=== PATIENT | female | born 1995 | race Caucasian/White ===

== ENCOUNTER → 2022-02-19 15:40 | Outpatient (CLI) | payer OTHER, SELFPAY ==
[2022-02-19 16:11] LABS: Add Manual Diff / Slide Review NO; Basophils Absolute Auto 0 /uL (0-100); Basophils Percent Auto 0.5 % (0-2); Eosinophils Absolute Auto 100 /uL (0-450); Eosinophils Percent Auto 1.1 % (2-4); Hematocrit 36.4 % (36-46); Hemoglobin 12.7 g/dL (12.0-16.0); Lymphocytes Absolute Auto 2200 /uL (1100-4500); Lymphocytes Percent Auto 22.4 % (25-40); Mean Corpuscular HGB Conc 34.8 % (30-36); Mean Corpuscular Hemoglobin 31.2 PG (26-34); Mean Corpuscular Volume 89.8 fL (80-100); Monocytes Absolute Auto 400 /uL (0-900); Monocytes Percent Auto 4.3 % (3-14); Neutrophils Absolute Auto 7100 /uL (1500-7000); Neutrophils Percent Auto 71.7 % (50-75); Platelet Count 266 X10^3/uL (150-400); Red Blood Cell Count 4.05 X10^6/uL (4.0-5.2); Red Cell Distribution Width 12.3 % (11.6-14.8); White Blood Cell Count 9.9 X10^3/uL (4.5-11.0)
[2022-02-20 09:47] LABS: RPR Screen Non Reactive (Non Reactive)
[2022-02-20 10:17] LABS: Varicella IgG Antibody 1792 index (Immune >165)
[2022-02-21 15:48] LABS: HIV 1 & 2 Ab/Ag 4th Gen Combo NEGATIVE (NEGATIVE); Hepatitis B Surface Antigen NEGATIVE s/c (NEGATIVE); Rubella Antibody IgG 10.1 IU/mL (>15)
== END ==
PROVIDERS: Referring Provider Obstetrics & Gynecology; Visit Provider Obstetrics & Gynecology
DX: Z34.80 Encounter for supervision of other normal pregnancy, unspecified trimester (principal)
CPT/HCPCS: 36415; 80055; 86787; 86850; 86900; 86901; 87389

== ENCOUNTER → 2022-03-20 11:11 | Outpatient (CLI) | payer OTHER, SELFPAY ==
[2022-03-20 12:02] LABS: Appearance Urine UA CLEAR; Bilirubin Urine UA NEGATIVE (NEGATIVE); Color Urine UA YELLOW; Glucose Urine UA NEGATIVE (Negative); Ketones Urine UA NEGATIVE (NEGATIVE); Leukocyte Esterase Urine UA NEGATIVE (NEGATIVE); Nitrite Urine UA NEGATIVE (Negative); Occult Blood Urine UA TRACE-INTACT (Negative); Protein Urine UA TRACE (Negative); Specific Gravity Urine UA 1.015 (1.000-1.035); Urobilinogen Urine UA 0.2 E.U./dL (0.2)
== END ==
PROVIDERS: Visit Provider Obstetrics & Gynecology
DX: Z34.80 Encounter for supervision of other normal pregnancy, unspecified trimester (principal)
CPT/HCPCS: 81003; 87086

== ENCOUNTER → 2022-04-16 15:20 | Outpatient (CLI) | payer OTHER, SELFPAY ==
[2022-04-18 20:04] LABS: Hep C Virus Ab w/Reflex Quant NEGATIVE s/c (NEGATIVE)
== END ==
PROVIDERS: Referring Provider Obstetrics & Gynecology; Visit Provider Obstetrics & Gynecology
DX: Z34.80 Encounter for supervision of other normal pregnancy, unspecified trimester (principal)
CPT/HCPCS: 36415; 86803

== ENCOUNTER → 2022-04-16 16:23 | Outpatient (CLI) | payer OTHER, SELFPAY ==
[2022-04-18 21:18] LABS: AFP, Serum 42.6 ng/mL (.); Estriol, Free 2.12 ng/mL (.); Inhibin A, Dimeric 71.48 pg/mL (.); Maternal Ethnicity Caucasian (.); Maternal Weight 177 lbs (.); Number of Fetuses No (.); OSBR Risk 1 IN 10000 (.); Results Report (.); Test Results *Screen Negative* (.); hCG, MoM 0.72 (.); hCG, Serum 17985 mIU/mL (.)
== END ==
PROVIDERS: Referring Provider Obstetrics & Gynecology; Visit Provider Obstetrics & Gynecology
DX: Z34.02 Encounter for supervision of normal first pregnancy, second trimester (principal); Z3A.18 18 weeks gestation of pregnancy
CPT/HCPCS: 36415; 82105; 82677; 84702; 86336; 86803

== ENCOUNTER → 2022-04-29 15:31 | Outpatient (CLI) | payer OTHER, SELFPAY ==
--- NOTE | 2022-04-29 15:32 | DI.US.S_ITS ---
PROCEDURE: US OB >= 14 WEEKS FETUS INDICATIONS: ANATOMY OUTSIDE/PRIOR DATING DATA: Last menstrual period (LMP): 12/07/2021 LMP-based estimated date of delivery (ISELA): 09/13/2022. First dating scan (date and location): 02/08/2022. Estimated date of delivery (ISELA) from first dating scan: 09/08/2022. TECHNIQUE: Real-time scanning was performed of the fetus, with image documentation and biometric measurements. COMPARISON: [facility], US, US OB < 14 WEEKS, 02/08/2022, 9:39. FINDINGS: General: A single living intrauterine gestation is present. Presentation: Vertex. Placenta: Placental position is posterior , without previa. Amniotic fluid index: 10.8 cm, normal range is 5-24 cm. Single deepest vertical pocket is 3.1 cm. heart rate: 144 beats per minute. Maternal cervical canal: 3.9 cm long. Normal lower limit is 2.5 cm. biometrics: Biparietal diameter: 20 weeks 5 days Head circumference: 20 weeks 5 days Abdominal circumference: 20 weeks 1 day Femur length: 20 weeks 5 days Clinically estimated gestational age: 20 weeks 1 day Composite gestational age from present scan: 20 weeks 4 days Estimated weight and percentile: 354 g; 14 percentile Anatomic survey: Neuro: Ventricles are non-dilated at less than 10 mm. Cisterna magna is normal at 3-11 mm. Cerebellum is normal in size and morphology. Nuchal skin fold: Normal at less than 6 mm between 14-21 weeks gestational age. Face: Nose and lips, facial profile are normal. Spine: No evidence for spina bifida. Heart: 4-chambered heart is present, with normal ventricular outflow tracts. Diaphragm: Diaphragm is intact. Stomach: Left-sided stomach is present. Kidneys: No hydronephrosis. Normal is less than 5 mm in 2nd trimester, less than 7 mm in 3rd trimester. Cord: 3-vessel cord has orthotopic insertion. Bladder: Normal in size. Extremities: All 4 extremities identified. IMPRESSION: 1. Single living IUP redemonstrated and interval growth is lower limits of normal. 2. Normal anatomic survey. We strive to produce accurate, complete, and clear reports of imaging services. To assist us in improving patient care, this report was composed using standard report templates and voice recognition software. Therefore, it may contain abnormal punctuation, insertions and/or omissions. Occasional wrong-word or sound-alike substitutions may occur. Though we review the report and make efforts to correct it, we do recommend that the report be read carefully in proper context to recognize any text inaccuracies. Dictated by: Patrick DUNCAN Interpreted: Ozzy Tripathi MD on 04/29/2022 at 16:28 Transcribed by: KEVEN on 04/29/2022 at 16:29 Approved by: Ozzy Tripathi M.D. on 04/29/2022 at 20:14
== END ==
PROVIDERS: Referring Provider Obstetrics & Gynecology; Visit Provider Obstetrics & Gynecology
DX: Z34.82 Encounter for supervision of other normal pregnancy, second trimester (principal); Z3A.20 20 weeks gestation of pregnancy
CPT/HCPCS: 76811

== ENCOUNTER → 2022-06-19 16:23 | Outpatient (CLI) | payer OTHER, SELFPAY ==
[2022-06-19 18:13] LABS: Hemoglobin 11.2 g/dL (12.0-16.0)
[2022-06-19 18:23] LABS: GTT (PREG) 1 Hour PP 50gm Dose 155 mg/dL (76-139)
== END ==
PROVIDERS: Referring Provider Obstetrics & Gynecology; Visit Provider Obstetrics & Gynecology
DX: Z34.82 Encounter for supervision of other normal pregnancy, second trimester (principal); Z3A.26 26 weeks gestation of pregnancy
CPT/HCPCS: 36415; 82950; 85014; 85018

== ENCOUNTER → 2022-07-03 15:46 | Outpatient (CLI) | payer OTHER, SELFPAY ==
--- NOTE | 2022-07-03 15:47 | DI.US.S_ITS ---
PROCEDURE: US OB LIMITED INDICATIONS: GROWTH - SMALL FOR GESTATIONAL AGE OUTSIDE/PRIOR DATING DATA: Last menstrual period (LMP): 12/07/2021. LMP-based estimated date of delivery (ISELA): 09/13/2022. First dating scan (date and location): 02/08/2022. Estimated date of delivery (ISELA) from first dating scan: 09/08/2022. The calculations are made using the working ISELA of 09/13/2022. TECHNIQUE: Real-time scanning was performed of the fetus, with image documentation. Endovaginal scanning: Not performed COMPARISON: None. FINDINGS: A single living intrauterine gestation is present. Presentation: Vertex. Placenta: Placental position is posterior, without previa. Amniotic fluid index: 13.1 cm, normal range is 5-24 cm. Single deepest vertical pocket is 4.2 cm. heart rate: 152 beats per minute. Maternal cervical canal: 3.9 cm long. Normal lower limit is 2.5 cm. Clinically estimated gestational age: 29 weeks 5 days Estimated gestational age from initial scan: 30 weeks 1 day. BPD is 7.8 centimeters. Head circumference is 28.3 centimeters. Abdominal circumference is 25.3 centimeters. Femur length is 5.5 centimeters. Estimated weight is 1410 grams, 31st percentile. IMPRESSION: Single living intrauterine gestation, size and interval growth normal. Dictated by: Cricket Milligan M.D. on 07/04/2022 at 8:47 Approved by: Cricket Milligan M.D. on 07/04/2022 at 8:57
== END ==
PROVIDERS: Referring Provider Obstetrics & Gynecology; Visit Provider Obstetrics & Gynecology
DX: Z3A.30 30 weeks gestation of pregnancy; O26.843 Uterine size-date discrepancy, third trimester
CPT/HCPCS: 76815; 76817

== ENCOUNTER → 2022-07-09 08:02 | Outpatient (CLI) | payer OTHER, SELFPAY ==
[2022-07-09 09:10] LABS: Glucose Fasting Gestational 75 mg/dL (76-95)
[2022-07-09 10:38] LABS: Glucose 1 Hour Gest 143 mg/dL (76-180)
[2022-07-09 11:57] LABS: Glucose Tol Interp,Gestational INTERPRETATION
[2022-07-09 13:03] LABS: Glucose 3 Hour Gest 128 mg/dL (76-140)
[2022-07-09 13:09] LABS: Glucose 2 Hour Gest 131 mg/dL (76-155)
== END ==
PROVIDERS: Referring Provider Obstetrics & Gynecology; Visit Provider Obstetrics & Gynecology
DX: O99.810 Abnormal glucose complicating pregnancy (principal)
CPT/HCPCS: 36415; 82951; 82952

== ENCOUNTER → 2022-07-11 10:09 | Outpatient (CLI) | payer OTHER, SELFPAY ==
[2022-07-11 14:20] LABS: Urine N gonorrhoeae NOT DETECTED
[2022-07-11 15:31] LABS: Urine Chlamydia NOT DETECTED
== END ==
PROVIDERS: Visit Provider Obstetrics & Gynecology
DX: Z34.83 Encounter for supervision of other normal pregnancy, third trimester (principal); Z3A.30 30 weeks gestation of pregnancy
CPT/HCPCS: 87491; 87591

== ENCOUNTER → 2022-08-14 11:52 | Outpatient (CLI) | payer OTHER, SELFPAY ==
[2022-08-15 08:58] LABS: Strep Grp B PCR POS for Grp B Strep
== END ==
PROVIDERS: Visit Provider Obstetrics & Gynecology
DX: Z34.83 Encounter for supervision of other normal pregnancy, third trimester (principal); Z3A.35 35 weeks gestation of pregnancy
CPT/HCPCS: 87653

== ENCOUNTER 2022-09-05 06:03 | Inpatient (IN) | payer OTHER, SELFPAY ==
--- NOTE | 2022-09-04 17:25 | P.HPOB_ITS ---
OB HPI Date/Time Date of admission: 09/05/22 Date Patient Seen: 09/05/22 Time Patient Seen: 07:15 History of Present Condition Chief complaint: IUP, 39+0 wks EGA, prior section x 1 : 2 Para: 1 Estimated Date of Delivery: 09/12/22 Estimated Gestational Age (weeks): 39+0 Narrative: Salud Del Angel is a 27 year old , ISELA 09/12/2022 admitted now at 39+0 weeks EGA for repeat section. course has been largely unremarkable with firm dating and appropriate milestones she would an elevated 1 hour GDM screen but a normal 3 hour GTT. GBS is positive. Indications Operative indications ( section): previous uterine surgery History of Present care: good care Dating criteria: LMP confirmed by 1st trimester US Ultrasounds: normal 1st trimester US and normal mid trimester US Obstetrical complications: none Medical complications: none Preadmission Labs Blood type: O (+) positive -: Antibody screen: negative, GBS status: positive, HBsAG: negative, HIV: negative and RPR/VDLR: negative -: Chlamydia screen: not detected and Gonorrhea screen: not detected -: Rubella: not immune and Varicella: immune HCT: 32.0 HCAB: negative PAP: Normal Quad screen: Normal 1 hr GTT: 155 3 hr GTT: 1 hr (143), 2 hr (131) and 3 hr (128) Fasting blood glucose: 75 Prior (ies) History: CS x 1 PFSH Medical History Abnormal Pap smear of cervix (~2019) Constipation Ganglion cyst Heartburn History of HPV infection History of PCOS (~2019) Hyperandrogenemia Infertility (~2018) Irregular menstrual cycle (~2018) Surgical History Anesthesia H/O breast augmentation (~2014) H/O colposcopy with cervical biopsy H/O laser assisted in situ keratomileusis (~2020) History of (~2018) History of delivery, antepartum Status post surgical removal of ganglion cyst (~2020) Family History Spouse Male factor infertility Brother Bipolar 1 disorder Endocrine disorder Grandmother Breast cancer Mother Hypertension Grandfather Mitral valve disorder Parkinsons Social History (Updated 01/16/22 @ 12:04 by Kaitlynn High RN) marital status: number of children: 1 household members: spouse, family (father) and children lives independently: Yes housing: house pets and animals: Yes (Dogs, aware of toxoplasmosis protection when gardening) education level: college occupational status: employed ([employer]) current occupational exposures/hazards: No special joey needs: No seatbelt use: always water heater temp set < 120 deg: Yes (will check) working smoke detector in home: Yes fire extinguisher in home: Yes carbon monox detector in home: Yes firearms in home: Yes firearms unloaded and locked: Yes do you feel safe at home: Yes Smoking Status: Never smoker second hand exposure: No alcohol intake: former substance use type: does not use during the past year weight has: remained stable well-balanced diet: daily or most days daily servings fruits/ve-4 caffeine: Yes (200mg a day) Type(s) of exercise: walking Meds Home Medications and Allergies Home Medications Medication Instructions Recorded Confirmed Type prenat.vits,brent,ocl-[id number]-[id number] 1 tab PO DAILY 01/10/22 09/05/22 History sertraline 50 mg tablet (Zoloft) 50 mg PO DAILY #30 tabs 05/14/22 09/05/22 Rx Double Electric Breast Pump #1 ea 07/30/22 09/05/22 Rx omeprazole magnesium 20 mg 40 mg PO DAILY #60 tabs 07/30/22 09/05/22 Rx tablet,delayed release (Prilosec OTC) Allergies Allergy/AdvReac Type Severity Reaction Status Date / Time No Known Drug Allergies Allergy Verified 09/05/22 04:52 Review of Systems Review of Systems Narrative: Problem-specific ROS positives included in HPI OB Exam HENMT Head: normal to inspection, normocephalic and atraumatic Eyes General: appearance normal, both eyes and all related structures Resp Effort & Inspection: normal respiratory effort and able to speak in complete sentences Auscultation: clear to auscultation bilaterally Cardio Rate: regular rate Rhythm: regular rhythm Heart Sounds: S1 normal, S2 normal and no murmurs Extremities Lower extremity: Yes normal to inspection GI Inspection: normal to inspection Palpation: Yes soft and Yes no hepatosplenomegaly Uterus Location (Fundal Height): 39 Estimated Weight (lbs): 8 Objective Labs Result Diagrams: 09/05/22 07:00 Assessment and Plan Assessment and Plan Assessment and Plan narrative: ASSESSMENT 1. Intrauterine , 39+ 0 weeks gestational age 2. Prior section 3. GBS positive status PLAN 1. Admit for repeat 2. See admission orders
[2022-09-05 07:24] LABS: Add Manual Diff / Slide Review NO; Basophils Absolute Auto 0 /uL (0-100); Basophils Percent Auto 0.3 % (0-2); Eosinophils Absolute Auto 100 /uL (0-450); Eosinophils Percent Auto 1.1 % (2-4); Hematocrit 31.4 % (36-46); Hemoglobin 10.3 g/dL (12.0-16.0); Lymphocytes Absolute Auto 2300 /uL (1100-4500); Lymphocytes Percent Auto 25.2 % (25-40); Monocytes Absolute Auto 500 /uL (0-900); Monocytes Percent Auto 5.5 % (3-14); Neutrophils Absolute Auto 6100 /uL (1500-7000); Neutrophils Percent Auto 67.9 % (50-75); Platelet Count 176 X10^3/uL (150-400); Red Blood Cell Count 3.69 X10^6/uL (4.0-5.2)
--- NOTE | 2022-09-05 07:25 | PM.PREOP ---
Pre-operative Note COVID-19 COVID-19 status: Negative Result date/Date tested (Pos, Neg/Pending): 09/05/22 Criteria for continued procedure: Non-surgical alternatives not available or appropriate per current SOC Interval Note History & Physical reviewed/Exam performed by Physician: Yes Changes to H&P: No
[2022-09-05] MEDS: CITRIC ACID/SODIUM CITRATE 15 ML SOLUTION 30 ML PO (07:27)
[2022-09-05] MEDS: LACTATED RINGERS 1,000 ML 100 ML IV ×2 (07:27→08:28)
[2022-09-05 07:32] LABS: COVID19 -Nasal RAPID Negative (Negative)
[2022-09-05] MEDS: CEFAZOLIN 2 GM/100 ML PREMIX 100 ML IV (07:55)
--- NOTE | 2022-09-05 08:20 | SUR.OPER ---
Supine on Padded OR bed, head on pillow, safety belt at thigh, arms secured on padded arm boards at <90 degrees abduction. Bump under right buttock. Legs uncrossed with pillow under knees, gel pad to heels, tape over blanket to lower legs.
--- NOTE | 2022-09-05 09:08 | PM.OBCS.1 ---
Operative Date/Time/Diagnoses Date of procedure: 09/05/22 Time of procedure: 08:00 Pre-op diagnosis: Intrauterine gestation, owens, 39+0 weeks EGA Previous section x 1 Post-op diagnosis: same Procedure & Clinicians Procedure: Repeat section, low transverse cervical Same procedure as scheduled: Yes Indications: Salud Del Angel is a 27 year old , ISELA 09/12/2022 admitted now at 39+0 weeks EGA for repeat section.? course has been largely unremarkable with firm dating and appropriate milestones she would an elevated 1 hour GDM screen but a normal 3 hour GTT.? GBS is positive. Surgeon: Joel Cleveland Stem Cleaning Machine Feeder: Teresa Murphy Reason for Stem Cleaning Machine Feeder: Stem Cleaning Machine Feeder required for the safe, effective, and timely completion of this surgery. Anesthesia Type: Spinal Operative Notes Findings: Viable male infant BW 3398 gms (7 lbs. 7.9 oz.), Apgars 9/9, delivered from the vertex presentation. Normal gravid anatomy. Closure Type: primary Specimen(s): cord blood Intraoperative meds administered: Ketorolac and Pitocin Applied: Catheter Estimated Blood Loss (mL): 600 Blood products transfused: none Procedure in detail: With her informed written consent, the patient was taken to the operating room and placed in the supine position for a repeat section procedure, for the indication(s) above. The abdomen was prepped and draped in the usual manner for section and a pre-surgical timeout was taken per [facility] OR protocol. Once effective anesthesia was confirmed, a 15 cm transverse Pfannenstiel incision was made in the skin and taken down through the subcutaneous tissues to the deep fascia. The deep fascia was incised transversely, the rectus abdominal eyes bluntly and sharply, and the peritoneal cavity entered without difficulty. The lower uterine segment was visualized and the position/presentation palpated. A transverse incision at or above the vesicouterine reflection was made with Metzenbaum scissors and transverse hysterotomy performed near the midline. Amniotomy revealed clear fluid. The incision was extended bilaterally with digital traction and the infant was delivered by vacuum extration from the vertex presentation. The was vigorous and cord clamping delayed for 60 seconds. The placenta was delivered intact using gentle cord traction and fundal massage.The uterine cavity was then cleared of any clot/debris first with a sloppy wet lap tape followed by a dry lap tape. Ring forceps were then applied to the angles and the midline of the incised CARLOTA. A primary closure of the uterus was then accomplished with #1 CCGS in a running interlocking stitch followed by a 2nd layer of #1 CCGS in a running interlocking imbricating stitch. Two additional figure of eight sutures were required to achieve complete hemostasis of the hysterotomy. Once pelvic hemostasis was assured, the bladder flap and anterior peritoneum were closed with a running 2-0 Vicryl suture and the fascia closed with #1 Vicryl in a running stitch initiated at both angles and tying separately near the midline. The subcutaneous tissues were reapproximated with 2-0 plain catgut suture using inverted interrupted stitches. The skin edges were then brought together with 4-0 Monocryl in a subcuticular closure and the incision was reinforced with 1 Steri-Strips. An appropriate compression dressing was applied and the patient transferred to PACU for recovery and subsequent transfer to the Center for recuperation. Complications: none [place] Baby 1: Gender: Male Presentation: vertex Position: Left Occiput Anterior Placental Delivery Description: Spontaneous and Expressed Cord Vessel Description: 3 Vessels score (1 min): 9 score (5 min): 9 weight: 7 lb 7.861 oz Post-operative Condition: stable Disposition: PACU Aftercare: routine postop
[2022-09-05 09:12] VITALS: BP 102/61; PULSE 83; RESP 16; TEMP 36.8; O2SAT 98
[2022-09-05 09:17] VITALS: BP 121/60; PULSE 77; RESP 16; O2SAT 98
[2022-09-05 09:26] VITALS: BP 122/72; PULSE 82; RESP 16; O2SAT 98
[2022-09-05] MEDS: BUTORPHANOL 1 MG/ML VIAL 0.5 MG IV (14:13)
[2022-09-05] MEDS: LANOLIN OINT 7 GM 1 APPLIC TOP (14:41)
[2022-09-05] MEDS: KETOROLAC 30 MG/ML VIAL IV ×2 (15:35→22:04)
[2022-09-05] MEDS: diphenhydrAMINE 50 MG/ML VIAL 25 MG IV (18:41)
[2022-09-06] MEDS: KETOROLAC 30 MG/ML VIAL IV (04:19)
[2022-09-06] MEDS: ACETAMINOPHEN 325 MG TABLET 650 MG PO ×3 (04:26→17:53)
[2022-09-06] MEDS: OXYCODONE IR 5 MG TABLET PO ×5 (04:27→23:42)
[2022-09-06 05:26] LABS: Add Manual Diff / Slide Review NO; Basophils Absolute Auto 0 /uL (0-100); Basophils Percent Auto 0.5 % (0-2); Eosinophils Absolute Auto 100 /uL (0-450); Eosinophils Percent Auto 1.3 % (2-4); Hematocrit 27.5 % (36-46); Hemoglobin 9.1 g/dL (12.0-16.0); Lymphocytes Absolute Auto 1800 /uL (1100-4500); Lymphocytes Percent Auto 19.6 % (25-40); Mean Corpuscular Hemoglobin 28.2 PG (26-34); Mean Corpuscular Volume 85.4 fL (80-100); Monocytes Absolute Auto 700 /uL (0-900); Monocytes Percent Auto 7.8 % (3-14); Neutrophils Absolute Auto 6500 /uL (1500-7000); Neutrophils Percent Auto 70.8 % (50-75); Platelet Count 136 X10^3/uL (150-400); Red Blood Cell Count 3.22 X10^6/uL (4.0-5.2); Red Cell Distribution Width 13.1 % (11.6-14.8); White Blood Cell Count 9.2 X10^3/uL (4.5-11.0)
--- NOTE | 2022-09-06 08:20 | P.PNOB_ITS ---
Subjective - OB Subjective Patient comments: no complaints [place] baby status: doing well feeding status: exclusively breast feeding Narrative: Patient has done extremely well overnight. She is ambulating independently, tolerating a regular diet, and her pain is well controlled with oral pain medication. Date Patient Seen: 09/06/22 Time Patient Seen: 08:23 Exam Vital Signs (past 8 hours): Oxygen Delivery Method Room Air Const General: cooperative and comfortable Nutritional Appearance: average body habitus Orientation: alert and oriented x3 HENMT Head: normal to inspection, atraumatic and abrasion Ears: hearing grossly normal bilaterally Face and sinus: face symmetric Eyes General: appearance normal, both eyes and all related structures Conjunctivae: conjunctivae normal Sclera: sclerae normal EOM: EOM intact bilaterally Neck Neck: normal visual inspection Resp Effort & Inspection: normal respiratory effort and able to speak in complete sentences Auscultation: clear to auscultation bilaterally Cardio Rate: regular rate Rhythm: regular rhythm Heart Sounds: S1 normal, S2 normal and no murmurs GI Inspection: normal to inspection and incision (Surgical dressing clean and dry) Palpation: soft, no hepatosplenomegaly, mass (Firm mildly tender fundus, U -6) and tender (Mild, diffuse postsurgical tenderness) External Female Exam: other (No significant bleeding noted) Extrem General: no calf tenderness Psych Appearance: grossly normal Mental Status: mental status grossly normal Speech and Movement: speech and movement normal Mood: congruent mood Affect: normal affect Attitude: cooperative Thought Process: normal Thought Content: normal Judgment: judgment good Objective Labs Result Diagrams: 09/06/22 05:14 Labs: Laboratory Results - last 24 hr 09/06/22 05:14 WBC 9.2 RBC 3.22 L Hgb 9.1 L Hct 27.5 L MCV 85.4 MCH 28.2 MCHC 33.0 RDW 13.1 Plt Count 136 L Neut % (Auto) 70.8 Lymph % (Auto) 19.6 L [place] % (Auto) 7.8 Eos % (Auto) 1.3 L Baso % (Auto) 0.5 Neut # (Auto) 6500 Lymph # (Auto) 1800 [place] # (Auto) 700 Eos # (Auto) 100 Baso # (Auto) 0 Assessment & Plan Plan day: 1 plan OB: routine postop care Comments: D/C in AM. Time Spent With Patient Time: Total time spent is greater than 50% in coordination of care (as documented) at patient's floor/unit and/or counseling patient: Time with patient: 15-24 minutes
[2022-09-06] MEDS: DOCUSATE 100 MG CAPSULE 200 MG PO (10:25)
[2022-09-06] MEDS: SERTRALINE 50 MG TABLET PO (10:28)
[2022-09-06] MEDS: IBUPROFEN 600 MG TABLET PO ×2 (13:00→19:15)
[2022-09-06] MEDS: SIMETHICONE 80 MG TABLET PO (22:31)
[2022-09-07] MEDS: IBUPROFEN 600 MG TABLET PO ×2 (02:01→08:09)
[2022-09-07] MEDS: ACETAMINOPHEN 325 MG TABLET 650 MG PO ×2 (02:01→08:09)
[2022-09-07] MEDS: SIMETHICONE 80 MG TABLET PO (02:05)
[2022-09-07] MEDS: OXYCODONE IR 5 MG TABLET PO ×2 (05:42→09:33)
[2022-09-07 07:36] VITALS: BP 122/72; PULSE 82; RESP 16; TEMP 36.8
[2022-09-07] MEDS: DOCUSATE 100 MG CAPSULE 200 MG PO (09:34)
[2022-09-07] MEDS: SERTRALINE 50 MG TABLET PO (09:34)
--- NOTE | 2022-09-07 11:23 | P.DS_ITS ---
Discharge Providers Provider Date of admission: 09/05/22 06:03 Discharge Date: 09/07/22 Primary care physician: Matthew FORREST Provider Consults: 09/05/22 09:14 Consult to Licensing Representative Routine Comment: Discharge provider: Joel Cleveland MD Summary Hospital Course Date Patient Seen: 09/07/22 Diagnoses: Intrauterine gestation, 39+ 0 weeks, delivered via repeat section Prior section GBS positive carrier status Hospital Course: Salud was admitted on the morning of 09/05/2022 for repeat section. She underwent that procedure and the details of the uncomplicated procedure itself well summarized on my operative note of that date. Following surgery the patient has done extremely well with prompt return of bowel and bladder funct ion, she is remained afebrile and normotensive, she is ambulating independently, tolerating a regular diet, and her pain is well controlled with oral pain medications. She will be discharged at this time along with her infant to home in an afebrile normotensive condition after counseling regarding precautionary symptoms, limitations of activity, medications, and plans follow-up which will be in 1 week. Medications at discharge will include although she was taking prior to admission, in addition to oxycodone 5 mg p.o. q.4 hours as needed pain #20 with no refills, and ibuprofen 600 mg p.o. q.6 hours as needed. Peripartum Data Infant Delivery Method: Section Laceration Description: None Episiotomy description: None complications: none 1: Gender: Male Disposition of : home Status at Discharge Cognitive/behavioral status at discharge: oriented Functional status at discharge: independent ambulation Overall status at discharge: patient is progressing back to baseline Time Spent with Patient Time attestation: Total time spent providing and/or coordinating discharge services: Time spent: Less than 30 minutes Objective Labs Result Diagrams: 09/06/22 05:14 Exam Vital Signs (past 8 hours): Oxygen Delivery Method Room Air Const General: cooperative and comfortable Nutritional Appearance: average body habitus Orientation: alert and oriented x3 HENMT Head: normal to inspection, atraumatic and abrasion Ears: hearing grossly normal bilaterally Face and sinus: face symmetric Eyes General: appearance normal, both eyes and all related structures Conjunctivae: conjunctivae normal Sclera: sclerae normal EOM: EOM intact bilaterally Neck Neck: normal visual inspection Resp Effort & Inspection: normal respiratory effort and able to speak in complete sentences Auscultation: clear to auscultation bilaterally Cardio Rate: regular rate Rhythm: regular rhythm Heart Sounds: S1 normal, S2 normal and no murmurs GI Inspection: normal to inspection and incision (Surgical dressing removed. Wound intact, AquaCel applied.) Palpation: soft, no hepatosplenomegaly, mass (Firm, minimally tender fundus, U- 5) and tender (Mild, diffuse postsurgical tenderness) External Female Exam: other (No significant bleeding noted) Extrem General: no calf tenderness Psych Appearance: grossly normal Mental Status: mental status grossly normal Speech and Movement: speech and movement normal Mood: congruent mood Affect: normal affect Attitude: cooperative Thought Process: normal Thought Content: normal Judgment: judgment good Discharge Plan Discharge Plan Patient Disposition: Home Provider Discharge Comment: Please review the written instructions you received when you were discharged from the hospital. Your follow-up appointment should be scheduled for 1 week following delivery and I look forward to seeing you then. If in the meanwhile however you have any concerns, problems, issues, or questions, please contact me either through the office phone at [phone] or via the patient portal. Discharge orders & Medications Prescriptions: New ibuprofen 600 mg Tablet 600 mg PO Q6H PRN (Reason: Fever/Mild Pain (1-3)) Qty: 60 2RF oxycodone 5 mg Tablet 5 mg PO Q4H PRN (Reason: Pain, Moderate (4-6)) Qty: 20 0RF Continued prenat.vits,brent,dlt-sgcx-[id number] Tablet 1 tab PO DAILY sertraline [Zoloft] 50 mg tablet 50 mg PO DAILY Qty: 30 6RF omeprazole magnesium [Prilosec OTC] 20 mg tablet,delayed release (DR/EC) 40 mg PO DAILY Qty: 60 12RF (DME) Double Electric Breast Pump See Rx Instructions .Route .MEDSUPPLY Qty: 1 0RF Rx Instructions: Pump with supplies Follow up/Referrals: Provider,Matthew FORREST [Primary Care Provider] - Joel Cleveland MD [Physician] - 09/13/22 1:15 pm (Follow up for incision check on 09/13/2022 @ 1:15pm 6 week post follow up with Dr. Cleveland on 10/17/2022 @ 0900 am) Discharge Health Status Multidrug resistant organism: No MDRO Diet/Activity/Treatments Diet: Diet as Tolerated Activity: As directed Other treatments: Kjnj-omn-rfzbukc ibuprofen may also be used for additional pain relief. Esho-gsx-pqlrusr stool softeners and/or MiraLax may be used for constipation Skin/Wound/Dressing Care Report to your healthcare provider any signs of infection, such as:: chills, fever, increased pain, unusual drainage and unusual redness Dressing: Dressing will be removed at your 1 week postop checkup Visit Report/Discharge Packet Instructions: DI for , DI for and Nipple Soreness, DI for Prescription Opioid Use Discharge Data Primary Care Provider: Matthew Holder
[2022-09-07] MEDS: MEASLES,MUMPS,RUBELLA VACC/PF 0.5 ML VIAL SUBCUT (12:06)
== END 2022-09-08 00:30 | disposition home or self-care (01) | DRG 788 ==
PROVIDERS: Admitting Provider Obstetrics & Gynecology; Referring Provider Obstetrics & Gynecology; Visit Provider Obstetrics & Gynecology
PROC: 10D00Z1 Extraction of Products of Conception, Low, Open Approach (ICD-10-PCS; CPT 59514; principal; 2022-09-05 07:45)
DX: O34.211 Maternal care for low transverse scar from previous cesarean delivery (principal); Z3A.39 39 weeks gestation of pregnancy; Z37.0 Single live birth; O99.824 Streptococcus B carrier state complicating childbirth; Z20.822 Contact with and (suspected) exposure to COVID-19
CPT/HCPCS: 36415; 59050; 59510; 59514; 85025; 86850; 86900; 86901; 87635; C9803; J0595; J0690; J1200; J1885; J2274; J2405; J2590; J3010